=== PATIENT | female | born 1950 | race Caucasian/White ===

== ENCOUNTER 2016-04-26 04:53 | Observation (INO) | payer MEDICARE ==
[2016-04-26] MEDS ORDERED: MECLIZINE HCL 12.5 MG TAB PO ONE (05:28)
[2016-04-26] MEDS ORDERED: SODIUM CHLORIDE 0.9% (FLUSH) 10 ML SYG IV PRN ×2 (05:28→06:53)
--- NOTE | 2016-04-26 05:34 | ED.PDOC ---
History of Present Illness - General Chief Complaint: General Stated Complaint: dizziness, left arm weakness, SOB, nausea Time Seen by Provider: 04/26/16 05:27 Source: patient, RN notes reviewed, Vital Signs reviewed Exam Limitations: no limitations - History of Present Illness Initial Comments: Patient is a 66 y/o female who comes in complaining of dizziness since 033 today. She woke up and felt dizzy and when she sat up, she felt more dizzy. The dizziness is like the room in spinning around. She had this several years ago, and the chiropractor said that she had a compressed nerve in her neck. She has left neck pain and left arm and weakness as well. She used to be on blood pressure medication, but felt like it was making the symptoms worse, so she stopped taking it. She has no cardiac history, doesn't smoke or drink alcohol. Timing/Duration: 1-3 hours Severity: moderate Improving Factors: nothing Worsening Factors: movement Associated Symptoms: chest pain, nausea/vomiting, shortness of breath, weakness Allergies/Adverse Reactions: Allergies NO KNOWN ALLERGY Allergy (Verified 04/26/16 05:13) Home Medications: Ambulatory Orders NK [NK] 04/26/16 Review of Systems - Review of Systems Constitutional: States: weakness EENTM: Denies: eye pain, blurred vision, ear pain Respiratory: States: short of breath Cardiology: States: chest pain Gastrointestinal/Abdominal: States: nausea Genitourinary: States: no symptoms reported Musculoskeletal: States: muscle pain Skin: States: no symptoms reported Neurological: States: weakness Endocrine: States: no symptoms reported Hematologic/Lymphatic: States: no symptoms reported All other Systems: Reviewed and Negative Past Medical History (General) - Patient Medical History Hx Seizures: No Hx Stroke: No Hx Dementia: No Hx Asthma: No Hx of COPD: No Hx Cardiac Disorders: No Hx Congestive Heart Failure: No Hx Pacemaker: No Hx Hypertension: Yes Hx Thyroid Disease: No Hx Diabetes: No Hx Gastroesophageal Reflux: No Hx Renal Disease: No Hx Cancer: No Hx of HIV: No Hx Hepatitis C: No Hx MRSA: No Surgical History: other - Vaccination History Hx Tetanus, Diphtheria Vaccination: - unknown Hx Influenza Vaccination: No Hx Pneumococcal Vaccination: No Immunizations Up to Date: Yes - Social History Hx Alcohol Use: No Hx Substance Use: No Hx Substance Use Treatment: No Hx Depression: No Feels Threatened In Home Enviroment: No Feels Threatened In a Relationship: No Hx Physical Abuse: No Hx Emotional Abuse: No Hx Suspected Abuse: No - Activities of Daily Living Hospice Agency (if applicable):: None Family Medical History - Family History Mother Family History: Unknown Living Status: Physical Exam - Physical Exam General Appearance: Alert, Anxious, No apparent distress Eye Exam: bilateral normal Ears, Nose, Throat: hearing grossly normal, normal ENT inspection, normal pharynx Neck: full range of motion, tender lateral Respiratory: lungs clear, normal breath sounds, no respiratory distress, no accessory muscle use Cardiovascular/Chest: regular rate, rhythm, no edema, no gallop, no murmur Gastrointestinal/Abdominal: normal bowel sounds, non tender, soft, no organomegaly Extremity: normal range of motion, non-tender, normal inspection, no pedal edema , no calf tenderness 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 - Results/Orders Results/Orders: 04/26/16 04/26/16 05:06 06:00 Temperature 98.3 F Pulse Rate [ 85 76 monitor] Respiratory 20 Rate Blood Pressure 163/91 143/81 [Left Arm] O2 Sat by Pulse 95 Oximetry 04/26/16 05:28 Sodium Chloride 0.9% (Flush) [Saline Flush Syringe] 10 ml IV PRN PRN 04/26/16 05:29 IV Care:Saline Lock per Protoc QSHIFT Telemetry .ONCE EKG Stat Pulse Ox Stat Pulse Oximetry Assessment DAILY Laboratory Results WBC 5.2 K/mm3 (4.8-10.8) 04/26/16 05:40 RBC 4.26 M/mm3 (4.20-5.40) 04/26/16 05:40 Hgb 13.5 gm/dL (12.0-16.0) 04/26/16 05:40 Hct 39.6 % (36.0-47.0) 04/26/16 05:40 MCV 93.0 fl (81.0-99.0) 04/26/16 05:40 MCH 31.7 pg (27.0-31.0) H 04/26/16 05:40 MCHC 34.1 g/dL (33.0-37.0) 04/26/16 05:40 RDW 12.6 % (11.5-14.5) 04/26/16 05:40 Plt Count 195 K/mm3 (130-400) 04/26/16 05:40 MPV 8.5 fl (7.40-10.4) 04/26/16 05:40 Absolute Neuts (auto) 3.40 K/uL (1.8-6.8) 04/26/16 05:40 Absolute Lymphs (auto) 1.20 K/uL (1.0-3.4) 04/26/16 05:40 Absolute Monos (auto) 0.40 K/uL (0.2-0.8) 04/26/16 05:40 Absolute Eos (auto) 0.10 K/uL (0.0-0.4) 04/26/16 05:40 Absolute Basos (auto) 0.00 K/uL (0.0-0.1) 04/26/16 05:40 Neutrophils % 65.9 % (42.0-78.0) 04/26/16 05:40 Lymphocytes % 23.2 % (20.0-50.0) 04/26/16 05:40 Monocytes % 8.3 % (2.0-9.0) 04/26/16 05:40 Eosinophils % 2.2 % (1.0-5.0) 04/26/16 05:40 Basophils % 0.4 % (0.0-2.0) 04/26/16 05:40 PT 10.8 SECONDS (9.4-12.5) 04/26/16 05:40 INR 0.960 04/26/16 05:40 PTT (SP) 33.1 SECONDS (25.1-36.5) 04/26/16 05:40 Sodium 141 mmol/L (135-145) 04/26/16 05:40 Potassium 3.7 mmol/L (3.6-5.0) 04/26/16 05:40 Chloride 109 mmol/L (101-111) 04/26/16 05:40 Carbon Dioxide 25 mmol/L (21-31) 04/26/16 05:40 Anion Gap 10.7 (12-18) L 04/26/16 05:40 BUN 22 mg/dL (7-18) H 04/26/16 05:40 Creatinine 0.74 mg/dL (0.6-1.3) 04/26/16 05:40 BUN/Creatinine Ratio 29.7 (10-20) H 04/26/16 05:40 Random Glucose 129 mg/dL (70-105) H 04/26/16 05:40 Serum Osmolality 286.3 mOsm/L (275-295) 04/26/16 05:40 Calcium 9.2 mg/dL (8.4-10.2) 04/26/16 05:40 Magnesium 1.9 mg/dL (1.8-2.5) 04/26/16 05:40 Total Bilirubin 0.4 mg/dL (0.2-1.0) 04/26/16 05:40 Direct Bilirubin < 0.1 mg/dL (0-0.2) 04/26/16 05:40 Indirect Bilirubin 0.3 mg/dL (0.2-0.8) 04/26/16 05:40 AST 44 IU/L (10-42) H 04/26/16 05:40 ALT 46 IU/L (10-60) 04/26/16 05:40 Alkaline Phosphatase 68 IU/L (42-121) 04/26/16 05:40 Creatine Kinase 380 IU/L (26-140) H* 04/26/16 05:40 CK-MB (CK-2) 6.5 ng/mL (0.0-4.4) H* 04/26/16 05:40 CK-MB (CK-2) % 1.71 % (0.0-4.3) 04/26/16 05:40 Troponin I < 0.02 ng/mL (0.01-0.05) 04/26/16 05:40 B-Natriuretic Peptide 7.8 pg/ml (0-100) 04/26/16 05:40 Serum Total Protein 7.2 gm/dL (6.4-8.2) 04/26/16 05:40 Albumin 4.1 g/dl (3.2-5.5) 04/26/16 05:40 - EKG/XRAY/CT EKG: Sinus - 81 bpm, no ST T wave changes Comments: NML axis, NML intervals, No comparison-NSR XRAY: chest Xray Comments: No acute process - Additional EKG/XRAY/Consults XRAY #2: c-spine - Disk space narrowing at C4/C5 and C5/C6 Departure - Departure Clinical Impression: Dizziness, Shortness of breath Chest pain Qualifiers: Chest pain type: unspecified Qualifier Code: (R07.9) Chest pain, unspecified Degenerative disk disease Qualifiers: Spinal region: mid-cervical Qualifier Code: (M50.32) Other cervical disc degeneration, mid-cervical region Time of Disposition: 06:42 Disposition: Admit Patient Home Medications: Ambulatory Orders NK [NK] 04/26/16 Decision To Admit - Decistion To Admit Decision to Admit Reason: Medical Nature Decision to Admit Date: 04/26/16 Decision to Admit Time: 06:40
--- NOTE | 2016-04-26 06:02 | RAD ---
Clinical History : chest pain, dizziness , MAIN Exam : Portable AP view of the chest 04/26/2016 5:29 AM CDT Comparisons : none Findings : The lungs are clear without focal consolidation or pleural effusion. The heart is normal in size. The mediastinal contours are normal in appearance. The thoracic spine is age appropriate. The shoulders are unremarkable. Limited evaluation of the upper abdomen demonstrates no gross abnormalities. Impression: No acute cardiopulmonary disease Electronically signed by: Cece Jordan MD 04/26/2016 6:02 AM CDT
--- NOTE | 2016-04-26 06:04 | RAD ---
EXAM DESCRIPTION: Cervical Spine,3 Views CLINICAL HISTORY: 66 years, Female, neck pain, left arm weakness COMPARISON: None. FINDINGS: There are 7 cervical type vertebral bodies in normal anatomic alignment. The C7 vertebral body is incompletely evaluated on the lateral view. There is otherwise no acute fracture or dislocation. There is disc space narrowing at the C4/C5 and C5/C6 levels. There is associated mild vertebral hypertrophy bilaterally. Limited evaluation of the calvarium, facial bones, and lung apices demonstrate no gross abnormalities. The prevertebral and paravertebral soft tissues are grossly normal. IMPRESSION: 1. Nondiagnostic exam for trauma evaluation due to incomplete evaluation of C7. 2. Degenerative changes primarily at the C4/C5 and C5/C6 levels. Electronically signed by: Cece Jordan MD 04/26/2016 6:03 AM CDT
[2016-04-26] MEDS ORDERED: MORPHINE SULFATE INJ 10 MG/ML VIAL IV PRN (06:53)
[2016-04-26] MEDS ORDERED: NITROGLYCERIN 0.4 MG 25 EA TAB SL PRN (06:53)
[2016-04-26] MEDS ORDERED: ACETAMINOPHEN 325 MG TAB PO PRN (06:53)
[2016-04-26] MEDS ORDERED: IV SET AND CAP CHANGE INJ INJ SCH (07:00)
[2016-04-26] MEDS ORDERED: METOPROLOL SUCCINATE XL 25 MG TAB PO ONE (07:04)
[2016-04-26] MEDS ORDERED: OMEPRAZOLE CAP 20 MG CAP PO SCH (07:20)
[2016-04-26 07:40] VITALS: TEMP 98
[2016-04-26] MEDS ORDERED: SODIUM CHLORIDE 0.9% 10 ML VIAL IV PRN (08:42)
[2016-04-26] MEDS ORDERED: SODIUM CHLORIDE 0.9% (FLUSH) 10 ML SYG IV SCH (09:00)
[2016-04-26] MEDS ORDERED: MECLIZINE HCL 12.5 MG TAB PO SCH (10:00)
[2016-04-26 11:05] VITALS: O2SAT 97
[2016-04-26 11:06] VITALS: BP 144/82
--- NOTE | 2016-04-26 15:04 | SSS ---
DATE OF ADMISSION: 04/26/16 DATE OF DISCHARGE: 04/26/16 DISCHARGE DIAGNOSIS: 1. Acute vertigo with severe symptoms associated with nausea, dizziness, and almost falling. 2. Chest pain with no evidence of underlying ischemic coronary disease. 3. History of hypertension. 4. Chronic anxiety. 5. Cervical spine degenerative joint disease. 6. Mild left arm discomfort. HISTORY OF PRESENT ILLNESS: This 66-year-old, white female who lives at home alone was awakened about 3 o'clock and was noticeably dizzy. The whole room was spinning, even with her eyes shut she could feel a movement of her eyes behind the eyelids. She had associated nausea without emesis. She had palpitations and rapid pulse and some discomfort with pressure and ache substernally and into her left arm. Moderate shortness of breath was noted. She is left handed. In 2013, she had left arm numbness and weakness which came and went and was told to her was due to a pinched nerve in her neck. She was placed in the hospital for observation and repeat cardiac enzymes to rule out underlying ischemic coronary disease as well as treatment for what appeared to be an acute vertigo episode. PAST MEDICAL HISTORY: 1. Hypertension. 2. Neck pain. 3. Left arm numbness episode. PAST SURGICAL HISTORY: 1. Cataracts in 2001 and 2004. CURRENT MEDICATIONS: She takes multiple vitamins. ALLERGIES: NONE KNOWN. FAMILY HISTORY: Positive for coronary artery disease and strokes. SOCIAL HISTORY: The patient is now retired from working in a school cafeteria. No history of tobacco use in the past. REVIEW OF SYSTEMS: GENERAL: Weight is stable. No fever or chills. HEENT: Severe dizziness is evident, but vision and hearing appear to be fairly good. LUNGS: Some mild shortness of breath when dizzy. CARDIOVASCULAR: Some rapid pulse noted when especially ill. GASTROINTESTINAL: Some nausea, but no emesis. No diarrhea or blood in the stools. GENITOURINARY: No dysuria. EXTREMITIES: No significant pedal edema. NEUROLOGIC: No focal neurologic deficits. The patient is otherwise able to ambulate, communicate, and is well oriented at this time. PHYSICAL EXAMINATION: VITAL SIGNS: GENERAL: The patient is HEENT: Within normal limits. NECK: Supple with no adenopathy. LUNGS: Clear to auscultation. CARDIOVASCULAR: Heart tones are regular without any significant murmurs or gallops. ABDOMEN: Soft with no organomegaly, masses or tenderness. EXTREMITIES: Well-formed with good range of motion. NEUROLOGIC: No focal neurological deficits are noted. LABORATORY: White count 5,200, hemoglobin 13.5. INR 0.96. Potassium 3.7, BUN 22, creatinine 0.74, glucose 129, AST 44, otherwise liver enzymes normal. CK was elevated at 380, down to 304 on repeat while troponin remained 0. Beta natriuretic peptide 7.8, albumin 4.1. No cultures obtained. Chest x-ray was unremarkable. Cervical spine x-ray did reveal evidence of arthritic changes with degenerative disc disease present in the cervical spine region. HOSPITAL COURSE: The patient was feeling much improved after a couple of doses of meclizine. Repeat cardiac enzymes showed troponin being 0. She will be discharged home to have close followup in the clinic. Her son was also present at the time of her discharge to assist in her transfer home. PLAN: The patient is discharged home to have close followup with Dr. Meyers this next in the morning. Family will assist her in getting to the clinic. Encourage adequate fluid. Try meclizine 3 times a day for the next 3 days, then t.i.d. as needed for spinning dizziness. Get plenty of rest. Avoid rapid head movements. Do not fall. Return if not improving. #[id number] [facility]
[2016-04-27] MEDS ORDERED: ASPIRIN TABLET 325 MG TAB PO SCH (09:00)
== END 2016-04-26 15:10 | disposition home or self-care (01) ==
LOC: ER 04:53 → MS 07:02
PROVIDERS: ADMIT Emergency Medicine; ATTEND Emergency Medicine
DX: R42 Dizziness and giddiness (principal); R11.0 Nausea; R07.9 Chest pain, unspecified; I10 Essential (primary) hypertension; F41.9 Anxiety disorder, unspecified; M47.812 Spondylosis without myelopathy or radiculopathy, cervical region; M79.602 Pain in left arm; R06.02 Shortness of breath; Z79.82 Long term (current) use of aspirin; Z79.899 Other long term (current) drug therapy; Z60.2 Problems related to living alone; Z98.49 Cataract extraction status, unspecified eye; Z82.49 Family history of ischemic heart disease and other diseases of the circulatory system; Z82.3 Family history of stroke
CPT/HCPCS: 36415 ×3; 71010; 72040; 80048; 80076; 82550 ×2; 82553 ×2; 83880; 84484 ×2; 85025; 85610; 85730; 93005; G0378

== ENCOUNTER 2020-02-11 17:21 | Emergency (ER) | payer MEDICARE ==
[2020-02-11 17:40] VITALS: TEMP 97.8
--- NOTE | 2020-02-11 17:50 | ED.PDOC ---
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 + ASSOC SOB, NO N/V/DIAPHORESIS. Severity/Quality: mild Location: substernal Chest Pain Radiation: no radiation Activities at Onset: none Prior Chest Pain/Cardiac Workup: no prior chest pain Improving Factors: nothing Worsening Factors: nothing Nitro Today/Relief: no nitro taken today Allergies/Adverse Reactions: Allergies NO KNOWN ALLERGY Allergy (Verified 02/11/20 17:42) Home Medications: Ambulatory Orders Aspirin [Baby Aspirin] 81 mg PO QD #100 tab 04/26/16 Meclizine HCl [Meclizine 25] 25 mg PO TID PRN #35 tab 04/26/16 Multiple Vitamins W/ Minerals [Multivitamin Adults] 1 tab PO DAILY 04/26/16 Review of Systems - Review of Systems Constitutional: States: weakness - GENERALIZED X 1 WEEK EENTM: States: no symptoms reported Respiratory: States: see HPI, cough, other Cardiology: States: no symptoms reported Gastrointestinal/Abdominal: States: no symptoms reported Genitourinary: States: no symptoms reported Musculoskeletal: States: no symptoms reported Skin: States: no symptoms reported Endocrine: States: no symptoms reported Past Medical History (General) - Patient Medical History Hx Seizures: No Hx Stroke: No Hx Dementia: No Hx Asthma: No Hx of COPD: No Hx Cardiac Disorders: No Hx Congestive Heart Failure: No Hx Pacemaker: No Hx Hypertension: Yes Hx Thyroid Disease: No Hx Diabetes: No Hx Gastroesophageal Reflux: No Hx Renal Disease: No Hx Cancer: No Hx of HIV: No Hx Hepatitis C: No Hx MRSA: No Surgical History: no surgical history - Vaccination History Hx Tetanus, Diphtheria Vaccination: - unknown Hx Influenza Vaccination: No Hx Pneumococcal Vaccination: No - Social History Hx Alcohol Use: No Hx Substance Use: No Hx Substance Use Treatment: No Hx Depression: No Hx Physical Abuse: No Hx Emotional Abuse: No Hx Suspected Abuse: No - Activities of Daily Living Hospice Agency (if applicable):: None - Female History Patient is a Female of Child Bearing Age (10 -59 yrs old): No Family Medical History - Family History Mother Family History: Unknown Living Status: Physical Exam - Physical Exam General Appearance: Alert, Well Developed, Well Groomed, Well Hydrated, Well Nourished Eyes, Ears, Nose, Throat Exam: PERRL/EOMI, normal ENT inspection, TMs normal Neck: non-tender, full range of motion, supple, normal inspection Respiratory: chest non-tender, lungs clear, normal breath sounds, no respiratory distress, no accessory muscle use Cardiovascular/Chest: normal peripheral pulses, regular rate, rhythm, no edema, no gallop Gastrointestinal/Abdominal: normal bowel sounds, non tender, soft, no organomegaly Neurologic: no motor/sensory deficits, alert, normal mood/affect, oriented x 3 Skin Exam: normal color, warm/dry Lymphatic: no adenopathy Departure - Departure Clinical Impression: COVID-19 Time of Disposition: 18:35 Disposition: Discharge to Home or Self Care Condition: Good Departure Forms: ED Discharge - Pt. Copy, Patient Portal Self Enrollment Instructions: DI for Chest Pain, Coronavirus Disease 2019 (COVID-19) (DC) Activity: ambulate only with walker Home Medications: Ambulatory Orders Aspirin [Baby Aspirin] 81 mg PO QD #100 tab 04/26/16 Meclizine HCl [Meclizine 25] 25 mg PO TID PRN #35 tab 04/26/16 Multiple Vitamins W/ Minerals [Multivitamin Adults] 1 tab PO DAILY 04/26/16 Additional Instructions: IBUPROFEN OR TYLENOL NEEDED FOR PAIN.
--- NOTE | 2020-02-11 18:44 | RAD ---
EXAM DESCRIPTION: Chest,2 Views CLINICAL HISTORY: 70 years Female COUGH, CHEST PAIN COMPARISON: 04/26/2016. FINDINGS: The cardiomediastinal silhouette appears unremarkable. No consolidating infiltrates or pleural effusions. No pneumothorax. IMPRESSION: No acute abnormality is identified. Electronically signed by: Miah Chandra MD 02/11/2020 6:42 PM [facility]
[2020-02-11 18:55] VITALS: BP 155/78; O2SAT 96
== END 2020-02-11 18:55 | disposition home or self-care (01) ==
LOC: ER 17:21
DX: U07.1 COVID-19 (principal); R07.2 Precordial pain; I10 Essential (primary) hypertension; Z79.82 Long term (current) use of aspirin